=== PATIENT | male | born 1985 | race African-American/Black ===

== ENCOUNTER 2024-02-11 17:06 | Emergency (ER) | payer BC, SELFPAY ==
[2024-02-11] MEDS ORDERED: Amoxicillin/Potassium Clav 875 MG TAB ONE (17:53)
[2024-02-11] MEDS ORDERED: predniSONE 20 MG TAB ONE (17:53)
== END 2024-02-11 17:57 | disposition home or self-care (01) ==
LOC: NAV ERS 17:06
DX: J01.00 Acute maxillary sinusitis, unspecified (principal); J01.10 Acute frontal sinusitis, unspecified; J02.9 Acute pharyngitis, unspecified; H74.8X2 Other specified disorders of left middle ear and mastoid
CPT/HCPCS: 99283; J7512

== ENCOUNTER 2024-04-17 07:53 | Emergency (ER) | payer BC ==
[2024-04-17] MEDS ORDERED: guaiFENesin ER 600 MG TAB ONE (08:29)
[2024-04-17] MEDS ORDERED: Aspirin Chewable 81 MG TAB ONE (08:29)
[2024-04-17 08:42] LABS: #Basophils 0.1 thou/uL (0.0-0.2); #Eosinphils 0.2 thou/uL (0.0-0.7); #Lymphocytes 1.6 thou/uL (1.20-3.40); #Monocytes 0.5 thou/uL (0.11-0.59); #Neutrophils 3.4 thou/uL (1.40-6.50); %Basophils 1.3 % (0.0-1.0); %Monocytes 9.4 % (0.0-10.0); %Neutrophils 59.3 % (42.0-75.0); Hematocrit 44.3 % (42.0-52.0); Hemoglobin 13.6 g/dL (14.0-18.0); Mean Corpuscular HGB CONC 30.7 g/dL (32.0-36.0); Mean Corpuscular Hemoglobin 25.4 pg (27.0-31.0); Mean Corpuscular Volume 82.5 fl (78.0-98.0); Mean Platelet Volume 6.4 fL (7.4-10.4); Platelet Count 229 10x3/uL (130-400); RBC Distribution Width 13.3 % (11.5-14.5); Red Blood Cell (RBC) Count 5.36 mill/uL (4.70-6.10); White Blood Cell (WBC) Count 5.8 10x3/uL (4.8-10.8)
[2024-04-17 08:57] LABS: Troponin I Less than 0.010 ng/mL (< 0.028)
[2024-04-17 09:04] LABS: SARS-CoV-2 E Target Negative; SARS-CoV-2 N2 Target Negative; SARS-CoV-2 NAA Rapid Test Not Detected (NotDetected); SARS-CoV-2 RdRP gene Negative
[2024-04-17] MEDS ORDERED: NS 0.9% w/ 20 MEQ KCL 1,000 ML ONE (09:07)
[2024-04-17 09:31] LABS: Anion Gap 14 mmol/L (10-20); BUN (Urea Nitrogen) 17 mg/dL (8.9-20.6); Calc. Creatinine Clearance 0 mL/min (70-130); Calcium 9.5 mg/dL (7.8-10.44); Carbon Dioxide 25 mmol/L (22-29); Chloride 103 mmol/L (98-107); Estimated GFR 80; Glucose 93 mg/dL (70-105); Potassium 4.3 mmol/L (3.5-5.1); Sodium 138 mmol/L (136-145)
[2024-04-17 09:56] LABS: ALT (SGPT) 17 U/L (8-55); AST (SGOT) 19 U/L (5-34); Albumin 4.5 g/dL (3.5-5.0); Alkaline Phosphatase 40 U/L (40-110); Bilirubin, Total 0.4 mg/dL (0.2-1.2); Globulin 3.4 g/dL (2.4-3.5); Protein, Total 7.9 g/dL (6.0-8.3)
== END 2024-04-17 10:02 | disposition home or self-care (01) ==
LOC: NAV ERS 07:53
DX: J20.8 Acute bronchitis due to other specified organisms (principal)
CPT/HCPCS: 36415; 71046; 80053; 82247; 84484; 85025; 93005; J3480; U0002